=== PATIENT | female | born 1955 | race Caucasian/White ===

== ENCOUNTER 2016-07-17 12:19 | Outpatient (CLI) | payer OTHER | END 2016-07-17 12:20 | disposition home or self-care (01) | DX: M50.31 Other cervical disc degeneration, high cervical region (principal); M47.892 Other spondylosis, cervical region ==

== ENCOUNTER 2016-09-05 12:45 | Emergency (ER) | payer OTHER ==
--- NOTE | 2016-09-05 16:48 | Ultrasound Preliminary Report ---
Exam: US Duplex Ext Veins Right IMPRESSION: Negative for deep venous thrombosis in the right lower extremity. [facility] SITE ID: [id number]
--- NOTE | 2016-09-05 16:51 | Ultrasound Report ---
EXAM: RIGHT LOWER EXTREMITY VENOUS ULTRASOUND EXAM DATE: 09/05/2016 04:10 PM. CLINICAL HISTORY: Recent ankle injury; some pain and swelling now. COMPARISON: None. TECHNIQUE: Real-time sonographic vascular imaging was performed by the histology assistant through the lower extremity utilizing both color-flow and Doppler spectral analysis. Multiple underwriting service representative static sanjiv ges were saved for review. FINDINGS: Common Femoral Vein (CFV): Normal. CFV-GSV Junction: Normal. Profunda Femoral Vein (PFV): Normal. Femoral Vein (FV) Prox: Normal. Femoral Vein (FV) Mid: Normal. Femoral Vein (FV) Dist: Normal. Popliteal Vein: Normal. Posterior Tibial Veins: Normal. Peroneal Veins: Normal. Other: None. IMPRESSION: Negative for deep venous thrombosis in the right lower extremity. [facility] Referring Provider Line: [phone] SITE ID: [id number]
[2016-09-05 16:59] VITALS: BP 136/82
--- NOTE | 2016-09-05 17:06 | ED Physician Documentation ---
PD HPI LOWER EXT INJURY - Stated complaint Stated Complaint: RAPID HB/SWOLLEN ANKLE - Chief complaint Chief Complaint: General - History obtained from History obtained from: Patient - History of Present Illness PD HPI LOW EXT INJURY LOCATION: Right, Ankle Type of injury: No: Fall, Twist Where injury occurred: Home Timing - onset: Yesterday Timing - details: Gradual onset (onset of some swelling of the right ankle anterolaterally, with some local tenderness and bruised coloring. No skin sores , redness per se. Has not noted any injury, immobilization, nor calf tenderness. ) Improved by: Rest Worsened by: Palpating Associated symptoms: Swelling. No: Weakness, Numbness, Discolored Similar symptoms before: Has not had sx before Recently seen: Not recently seen Review of Systems Constitutional: denies: Fever, Chills Nose: denies: Rhinorrhea / runny nose, Congestion Throat: denies: Sore throat Cardiac: reports: Palpitations (noted her heart rate to be fast at home.). 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 - Present Medications Home Medications: Ambulatory Orders Medication Instructions Recorded Confirmed Ibuprofen 800 mg PO TID #20 tablet 05/16/15 Oxycodone HCl/Acetaminophen BID 05/16/15 05/16/15 [Percocet 10-325 mg Tablet] Oxycodone HCl/Acetaminophen 1 each PO QID PRN #20 tablet 05/16/15 [Percocet 10-325 mg Tablet] diazePAM [Valium] BID 05/16/15 05/16/15 - Allergies Allergies/Adverse Reactions: Allergies Allergy/AdvReac Type Severity Reaction Status Date / Time No Known Drug Allergies Allergy Verified 09/05/16 12:55 - Social History Does the pt smoke?: No Smoking Status: Never smoker PD ED PE NORMAL - Vitals Vital signs reviewed: Yes - General General: Alert and oriented X 3, No acute distress, Well developed/nourished - HEENT HEENT: Pharynx benign - Neck Neck: Supple, no meningeal sign, No bony TTP, No adenopathy - Cardiac Cardiac: RRR (mildly tachy on my exam. ), No murmur - Respiratory Respiratory: Clear bilaterally - Abdomen Abdomen: Soft, Non tender - Derm Derm: Normal color, Warm and dry - Extremities Extremities: No calf tenderness / cord, Other (right anterolateral lower leg with focal area of tenderness with some swelling. Faint ecchymotic coloring. NO skin sores nor rash. Looks likely c/w small varicosity bleeding under the skin. ) - Neuro Neuro: Alert and oriented X 3, No motor deficit, No sensory deficit, Normal speech Results - Vitals Vitals: Oxygen O2 Source Room air - EKG (time done) 13:07 Rate: Rate (enter#) (109) Rhythm: Sinus tachycardia [place]: Normal Intervals: Normal [place] QRS: Normal Ischemia: Normal ST segments. No: ST elevation c/w ischemia, ST depression, Non specific changes - Rads (name of study) duplex U/S Radiology: Prelim report reviewed (no DVT) Departure - Departure Disposition: 01 Home, Self Care Clinical Impression: Right ankle swelling Clinical Impression: (Ruled Out): DVT (deep venous thrombosis) Condition: Stable Record reviewed to determine appropriate education?: Yes Follow-Up: Jonnathan Holloway DO [Primary Care Provider] - Comments: Usual treatment for the ankle. No sigsn of blood clots on ultrasound. I would presume some prior scar tissue or such stretched/ and caused some inflammation and bleeding. Recheck if not improved over the next few days/week. You r BP was elevated here in the ED; please have it checked by your PMD to see if persistently elevated or just related to your conditions today. Discharge Date/Time: 09/05/16 17:14
== END 2016-09-05 17:14 | disposition home or self-care (01) ==
LOC: ED 12:45
DX: M25.471 Effusion, right ankle (principal); R03.0 Elevated blood-pressure reading, without diagnosis of hypertension
CPT/HCPCS: 93005; 99283; 99284

== ENCOUNTER 2017-01-05 11:32 | Emergency (ER) | payer OTHER ==
--- NOTE | 2017-01-05 12:39 | ED Physician Documentation ---
PD HPI MHE - Stated complaint Stated Complaint: MHE - Chief complaint Chief Complaint: MHE - History obtained from History obtained from: Patient - History of Present Illness Primary symptom: Anxiety Timing - onset: How many months ago (2) Pain level max: 0 Pain level now: 0 Similar symptoms before: Diagnosis (anxiety) Recently seen: Not recently seen - Additional information Additional information: Patient is a 61-year-old female who presents to the emergency department complaining of anxiety for the past 2 months. Feels like this became worse after taking Augmentin for diverticulitis. She states that she has auditory hallucinations of loud sounds, but mainly at night when she is asleep but wake her up. Has not talked her doctor about this. Did see Dr. Tang on the [facility] base for this back in June, that was not as severe at that time. Was given breathing and behavioral techniques that are not working. Has not been on any medication. Denies feeling suicidal or homicidal. Review of Systems Ten Systems: 10 systems reviewed and negative Constitutional: denies: Fever, Chills Eyes: denies: Decreased vision Ears: denies: Ear pain Nose: denies: Rhinorrhea / runny nose, Congestion Throat: denies: Sore throat Cardiac: denies: Chest pain / pressure Respiratory: denies: Cough GI: denies: Abdominal Pain, Nausea, Vomiting, Diarrhea Skin: denies: Rash Musculoskeletal: denies: Neck pain, Back pain Neurologic: denies: Focal weakness, Numbness, Confused, Altered mental status, Headache PD PAST MEDICAL HISTORY - Past Medical History Cardiovascular: None Respiratory: None Neuro: None Endocrine/Autoimmune: None - Past Surgical History Past Surgical History: Yes Ortho: Rotator cuff repair, Carpal Tunnel surgery, Spine surgery, 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 - Present Medications Home Medications: Ambulatory Orders Medication Instructions Recorded Confirmed Alprazolam [Xanax] 0.5 mg PO Q8H PRN #10 tablet 01/05/17 Naproxen Sodium [Aleve] 220 mg PO BID 01/05/17 01/05/17 Oxycodone HCl/Acetaminophen 1 each PO TID 01/05/17 01/05/17 [Percocet 10-325 mg Tablet] - Allergies Allergies/Adverse Reactions: Allergies Allergy/AdvReac Type Severity Reaction Status Date / Time No Known Drug Allergies Allergy Verified 09/05/16 12:55 - Social History Does the pt smoke?: No Smoking Status: Never smoker Does the pt drink ETOH?: Yes ETOH Use: Wine Does the pt have substance abuse?: No PD ED PE NORMAL - Vitals Vital signs reviewed: Yes - General General: Alert and oriented X 3, No acute distress, Well developed/nourished - HEENT HEENT: PERRL, Moist mucous membranes - Neck Neck: Supple, no meningeal sign - Cardiac Cardiac: RRR - Respiratory Respiratory: No respiratory distress, Clear bilaterally - Abdomen Abdomen: Soft, Non tender, Non distended - Derm Derm: Warm and dry, No rash - Extremities Extremities: No edema - Neuro Neuro: Alert and oriented X 3, herbarium worker 2-12 intact, No motor deficit, No sensory deficit, Normal speech - Psych Psych: Normal mood, Normal affect Results - Vitals Vitals: Vital Signs - 24 hr 01/05/17 01/05/17 11:39 13:36 Temperature 36.7 C 36.3 C L Heart Rate 118 H 96 Respiratory 19 12 Rate Blood Pressure 181/92 H 156/82 H O2 Saturation 100 99 Oxygen O2 Source Room air - Labs Labs: Laboratory Tests 01/05/17 01/05/17 01/05/17 12:48 12:48 12:48 WBC 8.1 RBC 4.26 Hgb 13.7 Hct 40.0 MCV 93.9 MCH 32.1 H MCHC 34.2 RDW 13.4 Plt Count 294 MPV 7.6 L Neut # 7.1 H Lymph # 0.8 L [place] # 0.2 Eos # 0.0 Baso # 0.0 Absolute Nucleated RBC 0.00 Nucleated RBC % 0.0 Sodium 131 L Potassium 3.7 Chloride 91 L Carbon Dioxide 27 Anion Gap 13.0 BUN 8 Creatinine 0.7 Estimated GFR (MDRD) 85 L Glucose 137 H Calcium 10.5 H Total Bilirubin 0.6 AST 29 ALT 29 Alkaline Phosphatase 68 Total Protein 8.2 Albumin 4.9 Globulin 3.3 Albumin/Globulin Ratio 1.5 Lipase 29 TSH 1.00 Free T4 1.21 Urine Color Urine Clarity Urine pH Ur Specific [place] Urine Protein Urine Glucose (UA) Urine Ketones Urine Occult Blood Urine Nitrite Urine Bilirubin Urine Urobilinogen Ur Leukocyte Esterase Ur Microscopic Review Urine Culture Comments Salicylates < 6.0 Urine Opiates Screen Ur Oxycodone Screen Urine Methadone Screen Ur Propoxyphene Screen Acetaminophen < 10 L Ur Barbiturates Screen Ur Tricyclics Screen Ur Phencyclidine Scrn Ur Amphetamine Screen U Methamphetamines Scrn U Benzodiazepines Scrn Urine Cocaine Screen U Cannabinoids Screen Ethyl Alcohol < 5.0 01/05/17 13:35 WBC RBC Hgb Hct MCV MCH MCHC RDW Plt Count MPV Neut # Lymph # [place] # Eos # Baso # Absolute Nucleated RBC Nucleated RBC % Sodium Potassium Chloride Carbon Dioxide Anion Gap BUN Creatinine Estimated GFR (MDRD) Glucose Calcium Total Bilirubin AST ALT Alkaline Phosphatase Total Protein Albumin Globulin Albumin/Globulin Ratio Lipase TSH Free T4 Urine Color LIGHT YELLOW Urine Clarity CLEAR Urine pH 6.0 Ur Specific [place] <=1.005 Urine Protein NEGATIVE Urine Glucose (UA) NEGATIVE Urine Ketones NEGATIVE Urine Occult Blood NEGATIVE Urine Nitrite NEGATIVE Urine Bilirubin NEGATIVE Urine Urobilinogen 0.2 (NORMAL) Ur Leukocyte Esterase NEGATIVE Ur Microscopic Review NOT INDICATED Urine Culture Comments NOT INDICATED Salicylates Urine Opiates Screen NEGATIVE Ur Oxycodone Screen POSITIVE H Urine Methadone Screen NEGATIVE Ur Propoxyphene Screen NEGATIVE Acetaminophen Ur Barbiturates Screen NEGATIVE Ur Tricyclics Screen NEGATIVE Ur Phencyclidine Scrn NEGATIVE Ur Amphetamine Screen NEGATIVE U Methamphetamines Scrn NEGATIVE U Benzodiazepines Scrn NEGATIVE Urine Cocaine Screen NEGATIVE U Cannabinoids Screen NEGATIVE Ethyl Alcohol PD MEDICAL DECISION MAKING - ED course Complexity details: reviewed results, re-evaluated patient, considered differential, d/w patient, d/w family, d/w in home sales consultant ED course: Patient is a 61-year-old female who presents to the emergency department with anxiety.She is well-appearing, nontoxic. Afebrile. Not suicidal or homicidal. SW consulted and pt given resources. Mildly hyponatremic, patient states she has been low on her sodium before, will have this rechecked with her doctor. Patient counseled regarding signs and symptoms for which I believe and urgent re -evaluation would be necessary. Patient with good understanding of and agreement to plan and is comfortable going home at this time This document was made in part using voice recognition software. While efforts are made to proofread this document, sound alike and grammatical errors may occur. Departure - Departure Disposition: 01 Home, Self Care Clinical Impression: Anxiety, Hyponatremia Condition: Good Instructions: ED Panic Attack Follow-Up: DEEDEE NIX MD [Primary Care Provider] - Within 1 week Prescriptions: Alprazolam [Xanax] 0.5 mg PO Q8H PRN #10 tablet PRN Reason: Anxiety Comments: Do not drive or operate heavy machinery while taking the Xanax. Also do not take the Xanax with your oxycodone. Make sure to follow-up with your doctor for further evaluation this week and follow-up with the resources as given to you by Nelia the social service technician today. Return if you worsen Discharge Date/Time: 01/05/17 14:28
[2017-01-05 12:58] LABS: BASOPHILS % (AUTO) 0.4 %; HGB - HEMOGLOBIN 13.7 g/dL (12.0-16.0); LYMPHOCYTES # (AUTO) 0.8 10^3/uL (1.5-3.5); LYMPHOCYTES % (AUTO) 9.3 %; MEAN CORPUSCULAR HEMOGLOBIN 32.1 pg (27.0-31.0); MEAN CORPUSCULAR HGB CONC 34.2 g/dL (32.0-36.0); MEAN CORPUSCULAR VOLUME 93.9 fL (81.0-99.0); MEAN PLATELET VOLUME 7.6 fL (7.9-10.8); MONOCYTES # (AUTO) 0.2 10^3/uL (0.0-1.0); MONOCYTES % (AUTO) 2.7 %; NEUTROPHILS # (AUTO) 7.1 10^3/uL (1.5-6.6); NEUTROPHILS % (AUTO) 87.6 %; RED BLOOD COUNT 4.26 10^6/uL (4.20-5.40); RED CELL DISTRIBUTION WIDTH 13.4 % (12.0-15.0); UNCORRECTED WHITE BLOOD COUNT 8.1 x10^3/uL; WHITE BLOOD COUNT 8.1 x10^3/uL (4.8-10.8)
[2017-01-05 13:08] LABS: ALBUMIN/GLOBULIN RATIO 1.5 (1.0-2.2); BILIRUBIN,TOTAL 0.6 mg/dL (0.2-1.0); BUN - BLOOD UREA NITROGEN 8 mg/dL (6-20); CALCIUM 10.5 mg/dL (8.5-10.3); CARBON DIOXIDE - CO2 27 mmol/L (21-32); CHLORIDE 91 mmol/L (101-111); CREATININE 0.7 mg/dL (0.4-1.0); GFR - MDRD 85 (>89); GLUCOSE 137 mg/dL (70-100); LIPASE 29 U/L (22-51); POTASSIUM 3.7 mmol/L (3.5-5.0); SALICYLATE < 6.0 mg/dL; SODIUM 131 mmol/L (135-145); TOTAL PROTEIN 8.2 g/dL (6.7-8.2)
[2017-01-05 13:21] LABS: ACETAMINOPHEN < 10 ug/mL (10-30)
[2017-01-05 13:36] VITALS: BP 156/82
[2017-01-05 14:07] LABS: BILIRUBIN,URINE NEGATIVE (NEGATIVE); UA CHARGE (STRIP ONLY) YES; UR CULTURE IF IND NOT INDICATED
[2017-01-05] MEDS ORDERED: ALPRAZolam 0.25 MG TABLET PO STA (14:15)
[2017-01-05] MEDS ORDERED: ALPRAZolam 0.25 MG TABLET PO ONE (14:23)
== END 2017-01-05 14:28 | disposition home or self-care (01) ==
LOC: ED 11:32
DX: F41.9 Anxiety disorder, unspecified (principal); E87.1 Hypo-osmolality and hyponatremia
CPT/HCPCS: 36415; 80053; 80306; 80307; 80320; 80329; 81003; 83690; 84439; 84443; 85025; 99283; A9270; 81001; 87086

== ENCOUNTER 2017-05-02 09:13 | Day surgery (SDC) | payer OTHER ==
[2017-05-02] MEDS ORDERED: LACTATED RINGERS 500 ML IV ONE (09:36)
[2017-05-02] MEDS ORDERED: KETOROLAC 0.45% OPHTH DROPS ONE (09:39)
[2017-05-02] MEDS ORDERED: PROPARACAINE 0.5% OPHTH DROPS 15 ML ONE (09:40)
[2017-05-02] MEDS: CYCLOPENTOLATE 1% OPHTH DROPS 2 ML ONE ×3 (09:50→10:00)
[2017-05-02] MEDS: PHENYLEPHRINE 2.5% OPHTH 2 ML DROPS ONE ×3 (09:50→10:03)
[2017-05-02] MEDS ORDERED: MIDAZOLAM 2 MG/2 ML VIAL IVP ONE (10:40)
[2017-05-02] MEDS ORDERED: BRIMONIDINE 0.2% OPHTH DROPS 5 ML OPTH ONE (10:44)
[2017-05-02] MEDS ORDERED: EPINEPHrine 1 MG/ML AMP IVP ONE (10:45)
[2017-05-02] MEDS ORDERED: CHONDR SULF/HYALURONATE SYRINGE IO ONE (10:46)
[2017-05-02] MEDS ORDERED: BSS/LIDOCAINE/EPINEPHRINE 1 ML SYRINGE IO ONE (10:47)
[2017-05-02] MEDS ORDERED: TIMOLOL 0.5% OPHTH DROPS OPTH ONE (10:47)
[2017-05-02] MEDS ORDERED: TRIAMCIN/MOXIFLOX/VANCO 1 ML VIAL IO ONE (10:48)
[2017-05-02] MEDS ORDERED: PROPARACAINE 0.5% OPHTH DROPS 15 ML LEFTEYE ONE (10:49)
--- NOTE | 2017-05-02 11:16 | OPERATIVE REPORT ---
DATE OF SERVICE: 05/02/2017 Physician: Evaristo John MD DATE OF SURGERY: 05/02/2017 PREOPERATIVE DIAGNOSIS: Visually significant cataract, left eye. This was her first cataract surgery. POSTOPERATIVE DIAGNOSIS: Visually significant cataract, left eye. This was her first cataract surgery. NAME OF PROCEDURE: Phacoemulsification with posterior chamber intraocular lens implant, left eye. SURGEON: Evaristo John MD ANESTHESIA: Monitored anesthesia care. COMPLICATIONS: None. OPERATIVE INDICATIONS: This is a 62-year-old woman with progressive vision loss in the left eye due to 2+ nuclear sclerotic and 3 to 4+ cortical cataract. Best corrected visual acuity was 20/100 with glare to 20/400 in the left eye. INDICATIONS FOR SURGERY: Overall decrease in vision, difficulty seeing words on the computer screen, difficulty reading; difficulty seeing words, closed captions, or game scores on TV; difficulty seeing street signs, difficulty driving at low light at night, difficulty driving at night because of head lights from other vehicles and/or street lights, and difficulty with glare or bright lights in any situation. She was consented at length concerning risks and benefits of cataract surgery, after which she expressed a desire to proceed with surgery. OPERATIVE PROCEDURE: The patient was taken to OR #3 and placed under monitored anesthesia care. A surgical timeout was conducted confirming correct patient, correct procedure, and correct surgical site. She was given topical anesthesia and then prepped and draped in the usual sterile fashion. The eye was entered at the 6 and 3 o'clock position. Intracameral Shugarcaine was injected into the anterior chamber, followed by Viscoat. A continuous-tear curvilinear capsulorrhexis was performed. The nucleus was hydrodissected and phacoemulsified. The cortex was evacuated using automated infusion and aspiration. Provisc was injected in the capsular bag and a 18.0 diopter intraocular lens was inserted into the bag. Approximately 0.7 mL of a mixture of triamcinolone, moxifloxacin, and vancomycin was injected subconjunctivally in the superior quadrant for infection and inflammation prophylaxis. I and A was used to evacuate the viscoelastic materials. The eye was inflated to physiologic pressure using balanced salt solution and found to be watertight. The patient was taken from the operating room in good condition, given postoperative instructions. TD: 05/02/2017 11:15
[2017-05-02 11:32] VITALS: BP 154/87
== END 2017-05-02 09:14 | disposition home or self-care (01) ==
LOC: SDS 09:13
PROVIDERS: ATTEND Ophthalmology
PROC: 08RK3JZ Replacement of Left Lens with Synthetic Substitute, Percutaneous Approach (ICD-10-PCS; principal; 2017-05-02 10:30)
DX: H25.812 Combined forms of age-related cataract, left eye (principal); I10 Essential (primary) hypertension
CPT/HCPCS: 66984; A9270; J3490; V2632

== ENCOUNTER 2017-05-16 06:52 | Day surgery (SDC) | payer OTHER ==
[2017-05-16] MEDS ORDERED: LACTATED RINGERS 500 ML IV ONE (07:02)
[2017-05-16] MEDS ORDERED: CYCLOPENTOLATE 1% OPHTH DROPS 2 ML ONE (07:03)
[2017-05-16] MEDS ORDERED: PROPARACAINE 0.5% OPHTH DROPS 15 ML ONE (07:03)
[2017-05-16] MEDS ORDERED: KETOROLAC 0.45% OPHTH DROPS ONE (07:03)
[2017-05-16] MEDS ORDERED: PHENYLEPHRINE 2.5% OPHTH 2 ML DROPS ONE (07:03)
[2017-05-16] MEDS ORDERED: KETOROLAC 0.45% OPHTH DROPS RIGHTEYE ONE (07:11)
[2017-05-16] MEDS ORDERED: PROPARACAINE 0.5% OPHTH DROPS 15 ML RIGHTEYE ONE ×2 (07:12→08:14)
[2017-05-16] MEDS ORDERED: CYCLOPENTOLATE 1% OPHTH DROPS 2 ML RIGHTEYE ONE (07:12)
[2017-05-16] MEDS ORDERED: PHENYLEPHRINE 2.5% OPHTH 2 ML DROPS RIGHTEYE ONE (07:12)
[2017-05-16] MEDS ORDERED: BRIMONIDINE 0.2% OPHTH DROPS 5 ML OPTH ONE (08:12)
[2017-05-16] MEDS ORDERED: EPINEPHrine 1 MG/ML AMP IVP ONE (08:12)
[2017-05-16] MEDS ORDERED: TIMOLOL 0.5% OPHTH DROPS OPTH ONE (08:13)
[2017-05-16] MEDS ORDERED: BSS/LIDOCAINE/EPINEPHRINE 1 ML SYRINGE IO ONE (08:13)
[2017-05-16] MEDS ORDERED: CHONDR SULF/HYALURONATE SYRINGE IO ONE (08:13)
[2017-05-16] MEDS ORDERED: TRIAMCIN/MOXIFLOX/VANCO 1 ML VIAL IO ONE (08:14)
[2017-05-16] MEDS ORDERED: MIDAZOLAM 2 MG/2 ML VIAL IVP ONE (08:30)
[2017-05-16] MEDS ORDERED: fentaNYL 100 MCG/2 ML VIAL IVP ONE (08:30)
[2017-05-16 08:34] VITALS: BP 133/96
--- NOTE | 2017-05-16 08:47 | OPERATIVE REPORT ---
DATE OF SERVICE: 05/16/2017 Physician: Evaristo John MD DATE OF SURGERY: 05/16/2017 PREOPERATIVE DIAGNOSIS: Visually significant cataract, right eye. Cataract surgery was performed on the left eye on 05/02/2017. POSTOPERATIVE DIAGNOSIS: Visually significant cataract, right eye. Cataract surgery was performed on the left eye on 05/02/2017. NAME OF PROCEDURE: Phacoemulsification with posterior chamber intraocular lens implant, right eye. SURGEON: Evaristo John MD ANESTHESIA: Monitored anesthesia care. COMPLICATIONS: None. OPERATIVE INDICATIONS: This is a 62-year-old woman with progressive vision loss in the right eye due to 2+ nuclear sclerotic, 3 to 4+ cortical and anterior spoke cataracts. Best corrected visual acuity was 20/30 with glare to 20/200 in the right eye. INDICATIONS FOR SURGERY: Overall decrease in vision, difficulty seeing words on a computer screen, difficulty reading; difficulty seeing words, closed captions, or game scores on TV; difficulty seeing street signs, difficulty driving in low light or at night, difficulty driving at night because of headlights from other vehicles, and difficulty with glare or bright lights in any situation. She was consented at length concerning the risks and benefits of cataract surgery. Afterward, she expressed a desire to proceed with surgery. OPERATIVE PROCEDURE: The patient was taken into OR #3 and placed under monitored anesthesia care. A surgical timeout was conducted confirming correct patient, correct procedure, and correct surgical site. She was given topical anesthesia, and prepped and draped in the usual sterile fashion. The eye was entered at the 12 and 9 o'clock positions. Intracameral Shugarcaine was injected into the anterior chamber, followed by Viscoat. A continuous-tear curvilinear capsulorrhexis was performed. The nucleus was hydrodissected and phacoemulsified. The cortex was evacuated using automated infusion and aspiration. Provisc was injected in the capsular bag, and a 18.0 diopter intraocular lens was inserted into the bag. Approximately 0.7 mL of a mixture of triamcinolone, moxifloxacin, vancomycin was injected subconjunctivally in the superior quadrant for infection and inflammation prophylaxis. I and A was used to evacuate the viscoelastic materials. The eye was inflated to physiologic pressure using a balanced salt solution and found to be watertight. The patient was taken from the operating room in good condition and given postop instructions. TD: 05/16/2017 08:47
[2017-05-16] MEDS ORDERED: BRIMONIDINE 0.2% OPHTH DROPS 5 ML ONE (12:42)
[2017-05-16] MEDS ORDERED: TIMOLOL 0.5% OPHTH DROPS ONE (12:42)
== END 2017-05-16 06:53 | disposition home or self-care (01) ==
LOC: SDS 06:52
PROVIDERS: ATTEND Ophthalmology
PROC: 08RJ3JZ Replacement of Right Lens with Synthetic Substitute, Percutaneous Approach (ICD-10-PCS; principal; 2017-05-16 08:00)
DX: H25.811 Combined forms of age-related cataract, right eye (principal); I10 Essential (primary) hypertension
CPT/HCPCS: 66984; A9270; J3490; V2632

== ENCOUNTER 2017-05-27 12:52 | Emergency (ER) | payer OTHER ==
[2017-05-27 13:51] LABS: BASOPHILS % (AUTO) 0.5 %; EOSINOPHILS % (AUTO) 0.2 %; HGB - HEMOGLOBIN 13.5 g/dL (12.0-16.0); LYMPHOCYTES # (AUTO) 1.1 10^3/uL (1.5-3.5); LYMPHOCYTES % (AUTO) 20.9 %; MEAN CORPUSCULAR HEMOGLOBIN 32.3 pg (27.0-31.0); MEAN CORPUSCULAR HGB CONC 34.6 g/dL (32.0-36.0); MEAN CORPUSCULAR VOLUME 93.4 fL (81.0-99.0); MEAN PLATELET VOLUME 7.9 fL (7.9-10.8); MONOCYTES # (AUTO) 0.3 10^3/uL (0.0-1.0); MONOCYTES % (AUTO) 5.4 %; NEUTROPHILS # (AUTO) 3.8 10^3/uL (1.5-6.6); PLT - PLATELET COUNT 214 10^3/uL (130-450); RED BLOOD COUNT 4.19 10^6/uL (4.20-5.40); RED CELL DISTRIBUTION WIDTH 13.8 % (12.0-15.0); WHITE BLOOD COUNT 5.3 x10^3/uL (4.8-10.8)
[2017-05-27 13:53] LABS: ALBUMIN 4.5 g/dL (3.2-5.5); ALBUMIN/GLOBULIN RATIO 1.6 (1.0-2.2); BILIRUBIN,TOTAL 0.8 mg/dL (0.2-1.0); CALCIUM 9.6 mg/dL (8.5-10.3); CREATININE 0.8 mg/dL (0.4-1.0); TOTAL PROTEIN 7.4 g/dL (6.7-8.2)
--- NOTE | 2017-05-27 15:47 | ED Physician Documentation ---
PD HPI SKIN - Stated complaint Stated Complaint: HIGH BP/LIGHTHEAD/BILAT TOE PX - Chief complaint Chief Complaint: General - History obtained from History obtained from: Patient - History of Present Illness Timing - onset: How many weeks ago (2 weeks of having toes discolored and some sore. initially with left middle toes end having some black color. The the one next to it did as weell. Some soreness of the toes, but no redness, draiange. Seen by PMD and was to have U/S of legs. Today she is alsos noting dark spot right hand dorsal then area. No noted bites or stings.) Timing - duration: Weeks Timing - details: Gradual onset, Still present Location: No: Scalp, Face Quality / character: No: Itchy, Painful Review of Systems Constitutional: denies: Fever, Chills, Myalgias Eyes: denies: Loss of vision, Decreased vision Musculoskeletal: reports: Extremity pain (mild intermittent around the dark tips of the toes.) Neurologic: denies: Focal weakness, Numbness, Confused, Altered mental status, Headache, Head injury PD PAST MEDICAL HISTORY - Past Medical History Cardiovascular: Hypertension Respiratory: None Neuro: None Endocrine/Autoimmune: None GI: None : None HEENT: None Psych: Post traumatic stress disorder Musculoskeletal: Osteoarthritis, Other Derm: None - Past Surgical History Past Surgical History: Yes General:  Ortho: Rotator cuff repair, Carpal Tunnel surgery, Spine surgery, 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: Hysterectomy HEENT: Cataracts - Present Medications Home Medications: Ambulatory Orders Medication Instructions Recorded Confirmed Naproxen Sodium [Aleve] 220 mg PO BID 01/05/17 05/27/17 Oxycodone HCl/Acetaminophen 1 each PO TID 01/05/17 05/27/17 [Percocet 10-325 mg Tablet] Prazosin [Minipress] 2 mg PO QPM 05/02/17 05/27/17 Venlafaxine ER [Effexor ER] 75 mg PO DAILY 05/02/17 05/27/17 clonazePAM [KlonoPIN] 0.5 mg PO DAILY 05/02/17 05/27/17 - Allergies Allergies/Adverse Reactions: Allergies Allergy/AdvReac Type Severity Reaction Status Date / Time No Known Drug Allergies Allergy Verified 05/27/17 13:08 - Social History Does the pt smoke?: No Smoking Status: Never smoker Does the pt drink ETOH?: Yes Does the pt have substance abuse?: No PD ED PE NORMAL - Vitals Vital signs reviewed: Yes - General General: Alert and oriented X 3, No acute distress, Well developed/nourished - HEENT HEENT: Pharynx benign - Neck Neck: Supple, no meningeal sign - Cardiac Cardiac: RRR, No murmur - Respiratory Respiratory: Clear bilaterally - Abdomen Abdomen: Soft, Non distended - Female Female : Other Results - Vitals Vitals: Oxygen O2 Source Room air - EKG (time done) 16:28 Rate: Rate (enter#) (84) Rhythm: NSR [place]: Normal Intervals: Normal [place] QRS: Normal Compare to prior EKG: Old EKG unavailable - Labs Labs: Laboratory Tests 05/27/17 05/27/17 05/27/17 13:35 13:35 13:35 WBC 5.3 RBC 4.19 L Hgb 13.5 Hct 39.2 MCV 93.4 MCH 32.3 H MCHC 34.6 RDW 13.8 Plt Count 214 MPV 7.9 Neut # 3.8 Lymph # 1.1 L [place] # 0.3 Eos # 0.0 Baso # 0.0 Absolute Nucleated RBC 0.00 Nucleated RBC % 0.0 ESR 4 D-Dimer Sodium 132 L Potassium 3.5 Chloride 95 L Carbon Dioxide 27 Anion Gap 10.0 BUN 11 Creatinine 0.8 Estimated GFR (MDRD) 73 L Glucose 114 H Calcium 9.6 Magnesium Total Bilirubin 0.8 AST 35 ALT 37 Alkaline Phosphatase 72 C-Reactive Protein Total Protein 7.4 Albumin 4.5 Globulin 2.9 Albumin/Globulin Ratio 1.6 Lipase 23 05/27/17 05/27/17 13:35 13:35 WBC RBC Hgb Hct MCV MCH MCHC RDW Plt Count MPV Neut # Lymph # [place] # Eos # Baso # Absolute Nucleated RBC Nucleated RBC % ESR D-Dimer 278.5 H Sodium Potassium Chloride Carbon Dioxide Anion Gap BUN Creatinine Estimated GFR (MDRD) Glucose Calcium Magnesium 2.3 Total Bilirubin AST ALT Alkaline Phosphatase C-Reactive Protein < 1.0 Total Protein Albumin Globulin Albumin/Globulin Ratio Lipase - Rads (name of study) duplex U/S legs Radiology: Prelim report reviewed (no significiant flow abnormalities), EMP read contemporaneously PD MEDICAL DECISION MAKING - ED course Complexity details: considered differential (her toes look like embolic effect with little black spots on the tips of 3 of them and there is a small black spot on right hand near dorsal base of thumb. None of the areas are red nor swollen, not tender. Consider other possibility of vasculitis with these lesions. She is not ill, to consider viral exanthem or such. Labs and U/S are normal. She is in NSR and no h/o atrial fib.), d/w patient Departure - Departure Disposition: 01 Home, Self Care Clinical Impression: Embolic disease of toe Condition: Stable Record reviewed to determine appropriate education?: Yes Follow-Up: DEEDEE NIX MD [Primary Care Provider] - Comments: Your ultrasound shows no obvious blockages of the blood flow down in the legs or ankles. The flu changes of the toes do look like small clots have occurred there. I do not know the cause of these at the moment. Blood test mane does not show any signs of obvious blood clots in your system nor any autoimmune disorder that would cause clotting of the vessels. Your heart rhythm is normal without any suggestion of fibrillation. At this point I would have you follow up with your primary care for any further testing. Potentially consider some autoimmune disorders that might be affecting it. At this point I would suggest a baby aspirin a day. Discharge Date/Time: 05/27/17 18:48
[2017-05-27 16:36] LABS: CRP - C-REACTIVE PROTEIN < 1.0 mg/dL (0-1.0); MAGNESIUM 2.3 mg/dL (1.7-2.8)
--- NOTE | 2017-05-27 18:01 | Ultrasound Preliminary Report ---
Exam: US DUPLEX LWR EXT ARTERIAL BILAT IMPRESSION: No evidence for hemodynamically significant stenosis. [facility] SITE ID: [id number]
--- NOTE | 2017-05-27 18:09 | Ultrasound Report ---
EXAM: Bilateral Lower Extremity Arterial Doppler Ultrasound EXAM DATE: 05/27/2017 05:15 PM. CLINICAL HISTORY: Black spots on few toes left foot. COMPARISON: None. TECHNIQUE: Real-time sonographic vascular imaging was performed by the shift superintendent, utilizing color-f low, Doppler flow, and spectral analysis. Multiple billing representative static images were saved for review . FINDINGS: Right Leg: PRIMARY CARE PROVIDER: PSV 118 cm/sec. Triphasic waveform. PSFA: PSV 86 cm/sec. Triphasic waveform. MSFA: PSV 85 cm/sec. Biphasic waveform. DSFA: PSV 68 cm/sec. Biphasic waveform. PFA: PSV 77 cm/sec. Monophasic waveform. POP: PSV 59 cm/sec. Biphasic waveform. ANTHONY: PSV 61 cm/sec. Biphasic waveform. BATTERY BUILDER: PSV 31 cm/sec. Biphasic waveform. PER: PSV 36 cm/sec. Biphasic waveform. DPA: PSV 43 cm/sec. Biphasic waveform. Left Leg: PRIMARY CARE PROVIDER: PSV 114 cm/sec. Triphasic waveform. PSFA: PSV 84 cm/sec. Triphasic waveform. MSFA: PSV 73 cm/sec. Biphasic waveform. DSFA: PSV 61 cm/sec. Biphasic waveform. PFA: PSV 70 cm/sec. Monophasic waveform. POP: PSV 57 cm/sec. Biphasic waveform. ANTHONY: PSV 61 cm/sec. Biphasic waveform. BATTERY BUILDER: PSV 47 cm/sec. Biphasic waveform. PER: PSV 76 cm/sec. Biphasic waveform. DPA: PSV 44 cm/sec. Biphasic waveform. IMPRESSION: No evidence for hemodynamically significant stenosis. [facility] Referring Provider Line: [phone] SITE ID: [id number]
[2017-05-27] MEDS ORDERED: ASPIRIN CHEW 81 MG TABLET PO STA (18:35)
[2017-05-27 18:37] VITALS: BP 172/89
== END 2017-05-27 18:48 | disposition home or self-care (01) ==
LOC: ED 12:52
DX: I74.8 Embolism and thrombosis of other arteries (principal); R94.31 Abnormal electrocardiogram [ECG] [EKG]
CPT/HCPCS: 36415; 80053; 83690; 83735; 85025; 85379; 85651; 86140; 93005; 93925; 99283; A9270

== ENCOUNTER 2017-09-17 13:04 | Emergency (ER) | payer OTHER ==
--- NOTE | 2017-09-17 14:30 | ED Physician Documentation ---
History of Present Illness - Stated complaint Stated Complaint: DIARRHEA,ABD PX, SWEATING,CONFUSION - Chief complaint Chief Complaint: General - History obtained from History obtained from: Patient - History of Present Illness Timing: How many days ago (2) - Additonal information Additional information: 62-year-old female with a history of depression has developed acute fatigue dizziness diarrhea and nausea as well as lightheadedness. She has aches in her joints. She was well last week and feels that she is taking adequate amount of fluid but she has had a decreased urine output today. She had some surgery done to her eyes a little more than a month ago and she has been on some Paxil for about 1 month. Review of Systems Constitutional: reports: Myalgias, Fatigue. denies: Fever, Chills Eyes: denies: Decreased vision Ears: denies: Ear pain Nose: reports: Congestion. denies: Rhinorrhea / runny nose Throat: denies: Sore throat Cardiac: denies: Chest pain / pressure, Palpitations Respiratory: reports: Cough. denies: Dyspnea GI: reports: Abdominal Pain, Nausea, Diarrhea. denies: Vomiting : denies: Dysuria, Frequency Skin: denies: Rash Musculoskeletal: denies: Neck pain, Back pain, Extremity pain Neurologic: reports: Generalized weakness. 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 HEENT: Cataracts - Present Medications Home Medications: Ambulatory Orders Medication Instructions Recorded Confirmed Naproxen Sodium [Aleve] 220 mg PO BID 01/05/17 05/27/17 Metoprolol Tartrate 25 mg PO DAILY 09/17/17 09/17/17 Paroxetine HCl [Paxil] 20 mg PO DAILY 09/17/17 09/17/17 - Allergies Allergies/Adverse Reactions: Allergies Allergy/AdvReac Type Severity Reaction Status Date / Time No Known Drug Allergies Allergy Verified 09/17/17 13:20 - Social History Does the pt smoke?: No Smoking Status: Never smoker Does the pt drink ETOH?: Yes Does the pt have substance abuse?: No - Immunizations Immunizations are current?: Yes - POLST Patient has POLST: No PD ED PE NORMAL - Vitals Vital signs reviewed: Yes (hypertensive ) - General General: Alert and oriented X 3, No acute distress, Well developed/nourished - HEENT HEENT: Atraumatic, PERRL, EOMI, Ears normal, Other (dry mucous membranes ) - Neck Neck: Supple, no meningeal sign, No bony TTP - Cardiac Cardiac: RRR, No murmur - Respiratory Respiratory: No respiratory distress, Clear bilaterally - Abdomen Abdomen: Soft, Other (mild epigastric tenderness ) - Back Back: No CVA TTP, No spinal TTP - Derm Derm: Normal color, Warm and dry, No rash - Extremities Extremities: No deformity, No edema - Neuro Neuro: Alert and oriented X 3, fire prevention research engineer 2-12 intact, No motor deficit, No sensory deficit, Normal speech Eye Opening: Spontaneous Motor: Obeys Commands Verbal: Oriented GCS Score: 15 - Psych Psych: Normal mood, Normal affect Results - Vitals Vitals: Vital Signs - 24 hr 09/17/17 09/17/17 09/17/17 13:17 15:30 16:00 Temperature 36.7 C Heart Rate 78 72 72 Respiratory 18 16 16 Rate Blood Pressure 178/91 H 175/86 H 167/79 H O2 Saturation 98 Oxygen O2 Source Room air - Labs Labs: Laboratory Tests 09/17/17 09/17/17 09/17/17 13:50 13:50 13:50 WBC 7.4 RBC 4.14 L Hgb 13.9 Hct 40.3 MCV 97.3 MCH 33.7 H MCHC 34.6 RDW 12.9 Plt Count 255 MPV 8.3 Neut # (Auto) 5.8 Lymph # (Auto) 1.1 L Lamar # (Auto) 0.4 Eos # (Auto) 0.0 Baso # (Auto) 0.0 Absolute Nucleated RBC 0.00 Nucleated RBC % 0.0 Sodium 127 L Potassium 3.3 L Chloride 94 L Carbon Dioxide 25 Anion Gap 8.0 BUN 8 Creatinine 0.7 Estimated GFR (MDRD) 85 L Glucose 115 H Calcium 9.7 Total Bilirubin 0.7 AST 35 ALT 32 Alkaline Phosphatase 69 Troponin I < 0.04 Total Protein 7.3 Albumin 4.3 Globulin 3.0 Albumin/Globulin Ratio 1.4 Lipase 53 H Urine Color Urine Clarity Urine pH Ur Specific [place] Urine Protein Urine Glucose (UA) Urine Ketones Urine Occult Blood Urine Nitrite Urine Bilirubin Urine Urobilinogen Ur Leukocyte Esterase Ur Microscopic Review Urine Culture Comments 09/17/17 14:40 WBC RBC Hgb Hct MCV MCH MCHC RDW Plt Count MPV Neut # (Auto) Lymph # (Auto) Lamar # (Auto) Eos # (Auto) Baso # (Auto) Absolute Nucleated RBC Nucleated RBC % Sodium Potassium Chloride Carbon Dioxide Anion Gap BUN Creatinine Estimated GFR (MDRD) Glucose Calcium Total Bilirubin AST ALT Alkaline Phosphatase Troponin I Total Protein Albumin Globulin Albumin/Globulin Ratio Lipase Urine Color YELLOW Urine Clarity CLEAR Urine pH 5.5 Ur Specific [place] 1.010 Urine Protein NEGATIVE Urine Glucose (UA) NEGATIVE Urine Ketones TRACE Urine Occult Blood NEGATIVE Urine Nitrite NEGATIVE Urine Bilirubin NEGATIVE Urine Urobilinogen 0.2 (NORMAL) Ur Leukocyte Esterase NEGATIVE Ur Microscopic Review NOT INDICATED Urine Culture Comments NOT INDICATED Procedures - IVC sono (time) 1420 Bedside IVC sono: IVC measures (cm) (1.37), IVC collapsed c insp (cm) (complete) , Dehydration (est 1 liter deficit) PD MEDICAL DECISION MAKING - ED course Complexity details: reviewed old records, reviewed results, re-evaluated patient , considered differential, d/w patient ED course: 62-year-old female with a feeling of dizziness and lightheadedness with muscle aches has dehydration on evaluation of the inferior vena cava. She is administered intravenous fluids and a workup is undertaken.She is found to have some mild hypokalemia and is administered 25 mEq of potassium bicarbonate. She feels improved after hydration and is discharged home. - Sepsis Event Vital Signs: Vital Signs - 24 hr 09/17/17 09/17/17 09/17/17 13:17 15:30 16:00 Temperature 36.7 C Heart Rate 78 72 72 Respiratory 18 16 16 Rate Blood Pressure 178/91 H 175/86 H 167/79 H O2 Saturation 98 Oxygen O2 Source Room air Departure - Departure Disposition: 01 Home, Self Care Clinical Impression: Hypokalemia, Dehydration Condition: Stable Instructions: ED Dehydration, Diet High Potassium Dc Follow-Up: DEEDEE NIX MD [Primary Care Provider] -
[2017-09-17] MEDS ORDERED: SODIUM CHLORIDE 0.9% 1,000 ML IV ONE (14:32)
[2017-09-17 14:39] LABS: BASOPHILS % (AUTO) 0.3 %; HGB - HEMOGLOBIN 13.9 g/dL (12.0-16.0); LYMPHOCYTES # (AUTO) 1.1 10^3/uL (1.5-3.5); LYMPHOCYTES % (AUTO) 15.5 %; MEAN CORPUSCULAR HEMOGLOBIN 33.7 pg (27.0-31.0); MEAN CORPUSCULAR HGB CONC 34.6 g/dL (32.0-36.0); MEAN CORPUSCULAR VOLUME 97.3 fL (81.0-99.0); MEAN PLATELET VOLUME 8.3 fL (7.9-10.8); MONOCYTES # (AUTO) 0.4 10^3/uL (0.0-1.0); NEUTROPHILS # (AUTO) 5.8 10^3/uL (1.5-6.6); NEUTROPHILS % (AUTO) 79.2 %; PLT - PLATELET COUNT 255 10^3/uL (130-450); RED BLOOD COUNT 4.14 10^6/uL (4.20-5.40); RED CELL DISTRIBUTION WIDTH 12.9 % (12.0-15.0); WHITE BLOOD COUNT 7.4 x10^3/uL (4.8-10.8)
[2017-09-17 14:46] LABS: BILIRUBIN,URINE NEGATIVE (NEGATIVE); GLUCOSE, URINE (UA) NEGATIVE (NEGATIVE); KETONES,URINE (UA) TRACE mg/dL (NEGATIVE); LEUKOCYTE ESTERASE, URINE NEGATIVE (NEGATIVE); NITRITE,URINE NEGATIVE (NEGATIVE); OCCULT BLOOD,URINE NEGATIVE (NEGATIVE); PH,URINE 5.5 PH (5.0-7.5); PROTEIN,URINE NEGATIVE (NEGATIVE); UROBILINOGEN,URINE 0.2 (NORMAL) E.U./dL (NORMAL)
[2017-09-17 14:47] LABS: CLARITY,URINE CLEAR (CLEAR)
[2017-09-17 14:50] LABS: ALBUMIN 4.3 g/dL (3.2-5.5); ALBUMIN/GLOBULIN RATIO 1.4 (1.0-2.2); BILIRUBIN,TOTAL 0.7 mg/dL (0.2-1.0); CALCIUM 9.7 mg/dL (8.5-10.3); CREATININE 0.7 mg/dL (0.4-1.0); TOTAL PROTEIN 7.3 g/dL (6.7-8.2)
[2017-09-17] MEDS ORDERED: POTASSIUM BICARB 25 MEQ TABLET PO STA (16:14)
[2017-09-17 17:52] VITALS: BP 150/89
== END 2017-09-17 17:15 | disposition home or self-care (01) ==
LOC: ED 13:04
DX: E86.0 Dehydration (principal); E87.6 Hypokalemia; I10 Essential (primary) hypertension; M19.90 Unspecified osteoarthritis, unspecified site; F32.9 Major depressive disorder, single episode, unspecified
CPT/HCPCS: 36415; 80053; 81003; 83690; 84484; 85025; 99283; 99284; A9270; 81001; 87086

== ENCOUNTER 2019-03-23 10:46 | Emergency (ER) | payer OTHER ==
--- NOTE | 2019-03-23 11:46 | XRAY Report ---
Reason: cough Procedure Date: 03/23/2019 Accession Number: [id number] / [id number] Procedure: XR - Chest 2 View X-Ray CPT Code: 96464 Final Report FULL RESULT: EXAM: CHEST RADIOGRAPHY EXAM DATE: 03/23/2019 11:09 AM. CLINICAL HISTORY: Cough. COMPARISON: None. TECHNIQUE: 2 views. FINDINGS: Lungs/Pleura: No focal opacities evident. No pleural effusion. No pneumothorax. Normal volumes. Mediastinum: Heart and mediastinal contours are unremarkable. Other: Previous ACDF lower cervical spine. IMPRESSION: No consolidations identified. [facility]
[2019-03-23] MEDS ORDERED: ALBUTEROL NEB 2.5 MG/3 ML INH STA (14:08)
--- NOTE | 2019-03-23 14:10 | ED Physician Documentation ---
History of Present Illness - Stated complaint Stated Complaint: FEVER/COUGH/SOA - Chief complaint Chief Complaint: Fever - History obtained from History obtained from: Patient - History of Present Illness Timing: How many days ago (4) Pain level max: 0 Pain level now: 0 - Additonal information Additional information: 63-year-old female presents to the emergency department with cough congestion for the past 4 days. States had wheezing this weekend. Does not use inhalers. Subjective fevers at home. No vomiting. No diarrhea. No abdominal pain. No chest pain. Has not taken anything for this at home Review of Systems Constitutional: denies: Fever, Chills Nose: denies: Rhinorrhea / runny nose, Congestion GI: denies: Vomiting, Diarrhea Skin: denies: Rash Musculoskeletal: denies: Neck pain, Back pain Neurologic: denies: Headache PD PAST MEDICAL HISTORY - Past Medical History Cardiovascular: Hypertension Respiratory: None Endocrine/Autoimmune: None GI: None : None HEENT: None Psych: Post traumatic stress disorder Musculoskeletal: Osteoarthritis, Other Derm: None - Past Surgical History Past Surgical History: Yes General:  Ortho: Rotator cuff repair, Carpal Tunnel surgery, Spine surgery, 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 HEENT: Cataracts - Present Medications Home Medications: Ambulatory Orders Medication Instructions Recorded Confirmed Naproxen Sodium [Aleve] 220 mg PO BID 01/05/17 05/27/17 Metoprolol Tartrate 25 mg PO DAILY 09/17/17 09/17/17 PARoxetine HCl [Paxil] 20 mg PO DAILY 09/17/17 09/17/17 Albuterol Sulf [Ventolin Hfa 1 - 2 puffs INH Q4HR PRN #1 inhaler 03/23/19 Inhaler] Benzonatate [Tessalon Perle] 100 - 200 mg PO TID PRN #30 capsule 03/23/19 - Allergies Allergies/Adverse Reactions: Allergies Allergy/AdvReac Type Severity Reaction Status Date / Time No Known Drug Allergies Allergy Verified 03/23/19 10:53 - Social History Does the pt smoke?: No Smoking Status: Never smoker Does the pt drink ETOH?: Yes Does the pt have substance abuse?: No - Immunizations Immunizations are current?: Yes - POLST Patient has POLST: No PD ED PE NORMAL - Vitals Vital signs reviewed: Yes - General General: Alert and oriented X 3, No acute distress, Well developed/nourished - HEENT HEENT: PERRL, Ears normal, Moist mucous membranes, Pharynx benign - Neck Neck: Supple, no meningeal sign - Cardiac Cardiac: RRR, Strong equal pulses - Respiratory Respiratory: No respiratory distress, Clear bilaterally - Abdomen Abdomen: Soft, Non tender, Non distended - Derm Derm: Warm and dry - Neuro Neuro: Alert and oriented X 3 - Psych Psych: Normal mood, Normal affect Results - Vitals Vitals: Vital Signs - 24 hr 03/23/19 03/23/19 10:53 13:17 Temperature 37.4 C 37.5 C Heart Rate 104 H 87 Respiratory 17 18 Rate Blood Pressure 181/90 H 149/89 H O2 Saturation 97 97 Oxygen O2 Source Room air - Labs Labs: Laboratory Tests 03/23/19 10:58 Influenza A (Rapid) Negative Influenza B (Rapid) Negative - Rads (name of study) Chest x-ray Radiology: Prelim report reviewed, EMP read contemporaneously, See rad report (No acute disease) PD MEDICAL DECISION MAKING - ED course Complexity details: reviewed results, re-evaluated patient, considered differential, d/w patient ED course: Patient presents to the emergency department what appears to be a viral upper respiratory infection. No pneumonia on chest x-ray. Negative flu screen. Feels better after nebulizer treatment. We will have her follow-up with her doctor for further care. Patient is well-appearing, nontoxic. No hypoxia. Patient counseled regarding signs and symptoms for which I believe and urgent re-evaluation would be necessary. Patient with good understanding of and agreement to plan and is comfortable going home at this time This document was made in part using voice recognition software. While efforts are made to proofread this document, sound alike and grammatical errors may occur. Departure - Departure Disposition: 01 Home, Self Care Clinical Impression: Viral URI Condition: Good Instructions: ED URI Viral Follow-Up: your,doctor in 1 week [Other] Prescriptions: Albuterol Sulf [Ventolin Hfa Inhaler] 1 - 2 puffs INH Q4HR PRN #1 inhaler PRN Reason: Shortness Of Air/Wheezing Benzonatate [Tessalon Perle] 100 - 200 mg PO TID PRN #30 capsule PRN Reason: Cough Comments: Return if you worsen. Your influenza screen and chest x-ray do not show any acute abnormalities today. Follow-up with your doctor for further care.
[2019-03-23 14:24] VITALS: BP 164/94
== END 2019-03-23 14:54 | disposition home or self-care (01) ==
LOC: ED 10:46
DX: J06.9 Acute upper respiratory infection, unspecified (principal); I10 Essential (primary) hypertension
CPT/HCPCS: 71046; 87275; 87276; 94640; 94664; 99283

== ENCOUNTER 2021-09-01 08:00 | Outpatient (CLI) | payer OTHER ==
[2021-09-01 18:20] LABS: BASOPHILS # (AUTO) 0.1 10^3/uL (0.0-0.1); BASOPHILS % (AUTO) 0.7 %; EOSINOPHILS % (AUTO) 0.6 %; HCT - HEMATOCRIT 39.7 % (37.0-47.0); HGB - HEMOGLOBIN 13.5 g/dL (12.0-16.0); LYMPHOCYTES # (AUTO) 1.9 10^3/uL (1.5-3.5); LYMPHOCYTES % (AUTO) 28.7 %; MEAN CORPUSCULAR HEMOGLOBIN 32.1 pg (27.0-31.0); MEAN CORPUSCULAR VOLUME 94.5 fL (81.0-99.0); MEAN PLATELET VOLUME 10.5 fL (7.9-10.8); MONOCYTES # (AUTO) 0.5 10^3/uL (0.0-1.0); MONOCYTES % (AUTO) 7.8 %; NEUTROPHILS # (AUTO) 4.2 10^3/uL (1.5-6.6); NEUTROPHILS % (AUTO) 61.9 %; PLT - PLATELET COUNT 292 10^3/uL (130-450); RED CELL DISTRIBUTION WIDTH 13.1 % (12.0-15.0); WHITE BLOOD COUNT 6.7 x10^3/uL (4.8-10.8)
[2021-09-01 18:33] LABS: CALCIUM 9.6 mg/dL (8.5-10.3); CREATININE 0.8 mg/dL (0.4-1.0); POTASSIUM 3.8 mmol/L (3.5-5.0)
== END 2021-09-01 23:59 | disposition home or self-care (01) ==
LOC: LAB.R 08:00
PROVIDERS: ATTEND Internal Medicine
DX: Z01.812 Encounter for preprocedural laboratory examination (principal); I10 Essential (primary) hypertension; R42 Dizziness and giddiness; H35.349 Macular cyst, hole, or pseudohole, unspecified eye
CPT/HCPCS: 80048; 85025

== ENCOUNTER 2022-11-21 13:32 | Outpatient (CLI) | payer MEDICARE, OTHER ==
--- NOTE | 2022-11-21 21:50 | CT Report ---
PROCEDURE: ABDOMEN/PELVIS WO INDICATIONS: FLANK PAIN TECHNIQUE: A CT scan of the abdomen and pelvis was performed without the use of intravenous contrast. Images we re recorded and evaluated at appropriate window settings. Reformats: coronal and sagittal. For radiat ion dose reduction, the following was used: automated exposure control, adjustment of mA and/or kV ac cording to patient size. COMPARISON: 05/16/2015 FINDINGS: Image quality: Excellent. Lung bases and heart: Clear lung bases. Small hiatal hernia. Normal size heart. Liver: No solid mass. Gallbladder and biliary tree: Normal gallbladder. Nondilated biliary tree. Spleen: No splenomegaly. Pancreas: No pancreatic ductal dilation. Adrenals: No adrenal nodule. Kidneys and ureters: No hydronephrosis. No renal cystic lesion which requires follow up. No solid mas s. No nephrolithiasis or ureterolithiasis. Bowel and peritoneum: Normal stomach and small bowel. Severe descending and sigmoid colon diverticulo sis without acute diverticulitis. Lymph nodes: No central or retroperitoneal adenopathy. Vessels: No infrarenal aortic aneurysm. PELVIS Reproductive organs: Surgically absent uterus. No suspicious adnexal masses. Bladder: No wall thickness, accounting for underdistention. Pelvic lymph nodes: No pelvic adenopathy by size criteria. Bones: No aggressive osseous abnormality. Other: No significant ventral or inguinal hernia. IMPRESSION: 1. No urinary calcification or obstructive uropathy 2. Distal colonic diverticulosis without acute diverticulitis. Reviewed by: Kylah Bhatti MD on 11/21/2022 9:49 PM PDT Approved by: Kylah Bhatti MD on 11/21/2022 9:49 PM PDT Station ID: [id number]
== END 2022-11-21 13:33 | disposition home or self-care (01) ==
LOC: DI 13:32
PROVIDERS: ATTEND Internal Medicine
DX: R10.9 Unspecified abdominal pain (principal); K57.30 Diverticulosis of large intestine without perforation or abscess without bleeding